=== PATIENT | female | born 1985 | race Caucasian/White ===

== ENCOUNTER 2017-01-01 19:09 | Inpatient (IN) | payer BC ==
[2017-01-01] MEDS ORDERED: CARBOPROST TROMETHAMINE 250 MCG/ML 1 ML AMP IM PRN (19:26)
[2017-01-01] MEDS ORDERED: METHYLERGONOVINE 0.2 MG/ML 1 ML AMP IM PRN (19:26)
[2017-01-01] MEDS ORDERED: OXYTOCIN 10 UNIT/ML 1 ML VIAL IM PRN (19:26)
[2017-01-01] MEDS ORDERED: TERBUTALINE 1 MG/ML VIAL SQ PRN (19:26)
[2017-01-01] MEDS ORDERED: LIDOCAINE 1% (PF) 10 MG/ML (30 ML SDV) SQ PRN (19:26)
--- NOTE | 2017-01-01 20:01 | P.HPOB ---
History of Present Illness H&P Date: 01/01/17 Chief Complaint: Hypertension. This patient is a pleasant 31-year-old 2 para 1 female estimated date of confinement 01/23/2017 estimated gestational age 36-6/7 weeks gestation who is admitted from home with complaints of elevated blood pressure. Patient's history is such that with her last she developed hypertension and preeclampsia that required delivery at 37 weeks. Patient most recently is had some blood pressures become elevated however today she was at home and had a blood pressure 150s over 90s. Patient was instructed to come to labor and delivery for evaluation. is complicated by known thrombocytopenia otherwise. Most recent platelets were 120. Patient's blood pressure now on labor and delivery is 151/98 and 155/95. Review of Systems Constitutional: Denies chills, Denies fever Cardiovascular: Denies chest pain, Denies shortness of breath Respiratory: Denies cough Gastrointestinal: Reports heartburn Genitourinary: Reports Menstruation: Reports amenorrhea Integumentary: Denies pruritus, Denies rash Neurological: Denies numbness, Denies weakness Psychiatric: Denies anxiety, Denies depression Endocrine: Denies fatigue, Denies weight change Past Medical History Past Medical History: Thyroid Disorder History of Any Multi-Drug Resistant Organisms: None Reported Past Surgical History: No Surgical Hx Reported Past Anesthesia/Blood Transfusion Reactions: No Reported Reaction Past Psychological History: No Psychological Hx Reported Smoking Status: Never smoker Past Drug Use History: None Reported Medications and Allergies Home Medications Medication Instructions Recorded Confirmed Type Aspirin 81 mg PO DAILY 12/25/16 12/25/16 History Levothyroxine Sodium [Synthroid] 100 mcg PO 12/25/16 History Pnv #78/Iron Asp Gly/FA#1/Dha 12/25/16 History [Prenate Dha Softgel] Allergies Allergy/AdvReac Type Severity Reaction Status Date / Time Penicillins Allergy Rash/Hives Verified 12/25/16 17:23 Sulfa (Sulfonamide Allergy Rash/Hives Verified 12/25/16 17:23 Antibiotics) Exam - OBG Physical Exam Abdomen: bowel sounds normal, no diffuse tenderness, no bruit present, no guarding noted, no hepatomegaly, no splenomegaly, no mass Vulva: both: normal Vagina: normal moisture, no discharge Cervix: Cervix is 2-3 cm dilated 50% effaced. Cervix: no lesion, no discharge Uterus: enlarged Results blood work shows she is A negative, rubella immune, RPR nonreactive, hepatitis B is negative, Glucola was abnormal with a normal three-hour gtt., ultrasounds have been normal. Group B strep was negative however was positive with her first . Assessment and Plan (1) Gestational hypertension affecting second Narrative/Plan: This is a pleasant 31-year-old 2 para 1 female 36-6/7 weeks gestation with gestational hypertension. Plan at this time is to check preeclampsia blood work. Due to the patient's elevated blood pressures current guidelines recommend delivery patient understands. Plan will be to proceed with induction tomorrow morning unless evidence of preeclampsia at this time or worsening hypertension. Due to patient's history of positive strep previous antibiotic prophylaxis. Patient does have known thrombocytopenia caused by the but not related to preeclampsia. Status: Acute (2) Third trimester Status: Acute (3) Thrombocytopenia Status: Acute (4) Rh negative status during Status: Acute (5) Group B streptococcal carriage complicating Status: Acute
[2017-01-01 20:13] LABS: ALT 31 U/L (9-52); AST 18 U/L (14-36); Blood Urea Nitrogen 9 mg/dL (7-17); LDH 413 U/L (313-618); Non-African American GFR(MDRD) >60 (>60 ml/min/1.73 sqM); Uric Acid 3.7 mg/dL (3.7-7.4)
[2017-01-01 20:26] LABS: Glucose,Urine (UA) Negative (Negative); Ketones,Urine Negative (Negative); Protein,Urine Trace (Negative)
[2017-01-01 20:28] LABS: Basophils % (A) 0 %; CH 31.6; CHCM 34.6; Eosinophils # (A) 0.2 k/uL (0-0.7); Eosinophils % (A) 2 %; HCT 37.6 % (34.0-46.0); HDW 2.59; HGB 12.7 gm/dL (11.4-16.0); Luc % (Auto) 1; Lymphocytes # (A) 1.1 k/uL (1.0-4.8); Lymphocytes % (A) 13 %; MCH 30.9 pg (25.0-35.0); MCHC 33.7 g/dL (31.0-37.0); MCV 91.7 fL (80.0-100.0); Mean Platelet Volume 8.7; Monocytes # (A) 0.3 k/uL (0-1.0); Monocytes % (A) 3 %; Neutrophils % (A) 81 %; RDW 12.8 % (11.5-15.5); WBC 8.7 k/uL (3.8-10.6); WBC (Perox) 9.07
[2017-01-01 20:34] LABS: INR 0.9 (<1.1); Partial Thromboplastin Time 22.3 sec (22.0-30.0); Prothrombin Time 9.6 sec (9.0-12.0)
[2017-01-01 20:37] VITALS: BMI 39.1
--- NOTE | 2017-01-02 06:00 | P.PN ---
Progress Note - Text Ariella is 37 weeks gestation today. Serial blood pressures greater than 4 hours apart shows blood pressures this remained in the 150s over 90s, currently she is 130s over 80s. Based on current a ACOG criteria plan today is to proceed with induction of labor and delivery.
[2017-01-02] MEDS ORDERED: OXYTOCIN 30 UNITS/500 ML NS 30 UNIT in SALINE 1 500ML.BAG IV SCH ×2 (06:40→15:20)
[2017-01-02] MEDS ORDERED: LACTATED RINGERS 1,000 ML IV SCH (06:40)
[2017-01-02] MEDS: LACTATED RINGERS 1,000 ML IV SCH ×3 (06:43→10:41)
[2017-01-02] MEDS: CLINDAMYCIN 900 MG in DEXTROSE 5% IN WATER 50 ML IVPB SCH ×4 (07:14→15:20)
[2017-01-02] MEDS ORDERED: BUTORPHANOL 1 MG/ML 1 ML VIAL IV PRN (10:03)
[2017-01-02] MEDS ORDERED: BUPIVACAINE (PF) 0.25% 30 ML VIAL ONE (10:55)
[2017-01-02] MEDS ORDERED: fentaNYL (PF) 50 MCG/ML 5 ML AMP ONE (10:55)
[2017-01-02] MEDS ORDERED: SODIUM CHLORIDE 0.9% 100 ML BAG ONE (10:55)
[2017-01-02] MEDS ORDERED: LANOLIN CREAM 5 GM TUBE TOPICAL PRN (15:20)
[2017-01-02] MEDS ORDERED: Acetaminophen-Codeine 300-30mg TAB PO PRN ×2 (15:20)
[2017-01-02] MEDS ORDERED: HYDROCORTISONE 2.5% RECTAL CREAM 30 GM TUBE RECTAL PRN (15:20)
[2017-01-02] MEDS ORDERED: WITCH HAZEL 1 EACH MED..PAD TOPICAL PRN (15:20)
[2017-01-02] MEDS ORDERED: BENZOCAINE/MENTHOL SPRAY 1 GM/SPRAY AEROSOL TOPICAL PRN (15:20)
[2017-01-02] MEDS ORDERED: SIMETHICONE 80 MG CHEWABLE PO PRN (15:20)
[2017-01-02] MEDS ORDERED: diphenhydrAMINE 50 MG/ML 1 ML VIAL IVP PRN (15:20)
[2017-01-02] MEDS ORDERED: BISACODYL 10 MG SUPP RECTAL PRN (15:20)
[2017-01-02] MEDS ORDERED: diphenhydrAMINE 25 MG CAP PO PRN (15:20)
[2017-01-02] MEDS ORDERED: ACETAMINOPHEN TAB 325 MG TAB PO PRN (15:20)
[2017-01-02] MEDS ORDERED: ZOLPIDEM 5 MG TAB PO PRN (15:20)
[2017-01-02] MEDS: IBUPROFEN 600 MG TAB PO PRN ×2 (15:56→22:18)
--- NOTE | 2017-01-02 18:19 | P.PROBDLV ---
Vaginal Delivery Note - . Vaginal Delivery Note: Normal vaginal delivery viable male infant Apgars 7 and 7 at 1511 hrs. Please see dictated H&P for intimate details of this patient's admission. Brief summary is a pleasant 31-year-old 2 para 1 female 37-0/7 weeks gestation who presented with complaints of elevated blood pressures. Patient's noted to have significant blood pressure elevations without evidence of preeclampsia otherwise. Patient's blood pressures however warranted delivery. Patient is 2-3 cm dilated this morning an artificial rupture membranes for clear fluid. Labor is induced with Pitocin. Patient's labor does progress and she gets an epidural for pain control. Patient progresses quickly gets to complete. She pushes for approximately 40 minutes. Patient pushes the head to the perineum. Posterior perineum was a trial 1% lidocaine and a midline episiotomy is made. We then have controlled delivery of the infant's head over the perineum. Mouth and nares are bulb suctioned. There is no evidence of a nuchal cord. We then have deliver the anterior and posterior shoulder with gentle downward traction. The rest this infant's body. This is a vigorous viable male Apgars are 7 and 7.After delivery of the infant the umbilical cord is doubly clamped and cut it appears to be trivascular. The infant is then taken to the warmer with the nurses in attendance. Placenta is then spontaneously delivered intact. Estimated blood loss is 150 mL. Inspection of the perineum shows a second-degree laceration is repaired with 3- 0 Vicryl usual fashion. Good reapproximation is noted counts are correct 3. There are no complications. Infant is taken to the special care nursery for evaluation and mother stable and birthing suite.
[2017-01-02] MEDS: SENNOSIDES-DOCUSATE SODIUM 1 EACH TAB PO SCH (19:36)
--- NOTE | 2017-01-03 05:57 | P.PNOBGVD ---
Subjective - Subjective Patient reports: Reports appetite normal, Reports voiding normally, Reports pain well controlled, Reports ambulating normally : doing well Objective - Latest Vital Signs Latest vital signs: Vital Signs Temp Pulse Resp BP 01/03/17 00:00 97.1 F L 79 16 109/68 01/02/17 19:42 97.3 F L 88 18 125/69 01/02/17 17:30 96.9 F L 91 16 145/77 01/02/17 17:00 97.6 F 82 16 138/64 01/02/17 16:30 97.9 F 86 16 131/66 01/02/17 16:15 88 136/69 01/02/17 16:00 93 18 126/62 01/02/17 15:45 97.9 F 102 H 16 119/64 01/02/17 15:30 98.0 F 97 16 126/68 Intake and Output 01/02/17 01/02/17 01/03/17 14:59 22:59 06:59 Intake Total 9.317 Output Total 150 Balance -140.683 Intake: Intake, IV Titration 9.317 Amount Oxytocin 30 Units/500 ml 9.317 Ns 30 unit In Saline 1 500ml.bag @ 1 MILLIUNIT/ MIN 1 mls/hr IV .Q24H AVIVA Rx#:[id number] Output: Estimated Blood Loss 150 Other: # Voids 1 2 Assessment and Plan (1) Gestational hypertension affecting second Narrative/Plan: day #1. Patient is resting without new complaints. Vital signs are stable. Her blood pressures are much improved since delivery. Uterus is firm nontender she's having normal lochia. My impression is a normal course. Plan is to continue routine care and discharge home tomorrow. Dr. Doe we'll see this patient tomorrow. Current Visit: Yes Status: Acute Code(s): O13.9 - GESTATIONAL HTN W/O SIGNIFICANT PROTEINURIA, UNSP TRIMESTER; O09.40 - SUPERVISION OF W GRAND MULTIPARITY, UNSP TRIMESTER SNOMED Code(s): 48708142 (2) Third trimester Current Visit: Yes Status: Acute Code(s): Z33.1 - STATE, INCIDENTAL SNOMED Code(s): 07735478 (3) Thrombocytopenia Current Visit: Yes Status: Acute Code(s): D69.6 - THROMBOCYTOPENIA, UNSPECIFIED SNOMED Code(s): 650468830 (4) Rh negative status during Current Visit: Yes Status: Acute Code(s): O09.899 - SUPERVISION OF OTHER HIGH RISK PREGNANCIES, UNSP TRIMESTER SNOMED Code(s): 100372818 (5) Group B streptococcal carriage complicating Current Visit: Yes Status: Acute Code(s): O99.820 - STREPTOCOCCUS B CARRIER STATE COMPLICATING SNOMED Code(s): 652726322696738
[2017-01-03] MEDS: IBUPROFEN 600 MG TAB PO PRN ×3 (06:14→21:41)
[2017-01-03] MEDS: SENNOSIDES-DOCUSATE SODIUM 1 EACH TAB PO SCH ×2 (08:32→21:41)
[2017-01-04] MEDS: IBUPROFEN 600 MG TAB PO PRN (09:26)
[2017-01-04] MEDS: SENNOSIDES-DOCUSATE SODIUM 1 EACH TAB PO SCH (09:26)
[2017-01-04 09:36] VITALS: RESP 16
--- NOTE | 2017-01-04 11:12 | P.DS ---
Providers Date of admission: 01/01/17 19:22 Expected date of discharge: 01/04/17 Attending physician: Rupesh Nieto Primary care physician: Stated None - Discharge Diagnosis(es) (1) Normal vaginal delivery Current Visit: Yes Status: Acute Hospital Course: Patient presented for induction of labor due to elevated blood pressures. She underwent a normal vaginal delivery and had an uncomplicated post course. She will be discharged home PPD #2 in stable condition to follow up with Dr Nieto in 6 weeks. Plan - Discharge Summary New Discharge Prescriptions: Acetaminophen-Codeine 300-30mg [Tylenol w/codeine #3] 1 - 2 each PO Q4HR PRN # 30 tab PRN Reason: Mild Pain exceeding Tylenol Ibuprofen [Motrin] 600 mg PO Q6HR PRN #40 tab PRN Reason: Mild Pain Or Fever >= 100.5 Discharge Medication List Aspirin 81 mg PO DAILY 12/25/16 [History] Levothyroxine Sodium [Synthroid] 100 mcg PO DAILY 12/25/16 [History] Pnv #78/Iron Asp Gly/FA#1/Dha [Prenate Dha Softgel] 1 tab PO DAILY 12/25/16 [ History] Acetaminophen-Codeine 300-30mg [Tylenol w/codeine #3] 1 - 2 each PO Q4HR PRN # 30 tab 01/02/17 [Rx] Ibuprofen [Motrin] 600 mg PO Q6HR PRN #40 tab 01/02/17 [Rx] Follow up Appointment(s)/Referral(s): Rupesh Nieto MD [STAFF PHYSICIAN] - 02/18/17 8:45 am Patient Instructions/Handouts: Vaginal Delivery (DC) Activity/Diet/Wound Care/Special Instructions: No intercourse or anything per vagina for 6 weeks. Please call if any fever, chills, excessive vaginal bleeding, and/or abdominal pain. Discharge Disposition: HOME SELF-CARE
[2017-01-04 16:25] VITALS: BP 139/75; PULSE 77; TEMP 98.2
== END 2017-01-04 16:26 | disposition home or self-care (01) | DRG 775 ==
LOC: FBPOP 19:09 → 4FBP 19:22
PROVIDERS: ADMIT Obstetrics & Gynecology; ATTEND Obstetrics & Gynecology
PROC: 3E0R3CZ (ICD-10-PCS; principal; 2017-01-01)
PROC: 0W8NXZZ Division of Female Perineum, External Approach (ICD-10-PCS; principal; 2017-01-01)
PROC: 00HU33Z Insertion of Infusion Device into Spinal Canal, Percutaneous Approach (ICD-10-PCS; principal; 2017-01-01)
PROC: 10E0XZZ Delivery of Products of Conception, External Approach (ICD-10-PCS; principal; 2017-01-01)
DX: O13.4 Gestational [pregnancy-induced] hypertension without significant proteinuria, complicating childbirth (principal); O99.12 Other diseases of the blood and blood-forming organs and certain disorders involving the immune mechanism complicating childbirth; O36.0130 Maternal care for anti-D [Rh] antibodies, third trimester, not applicable or unspecified; O99.284 Endocrine, nutritional and metabolic diseases complicating childbirth; E07.9 Disorder of thyroid, unspecified; O99.824 Streptococcus B carrier state complicating childbirth; Z37.0 Single live birth; Z3A.36 36 weeks gestation of pregnancy; Z88.0 Allergy status to penicillin; Z88.2 Allergy status to sulfonamides
CPT/HCPCS: 81003; 82565; 83615; 84450; 84460; 84520; 84550; 85025; 85384; 85610; 85730; 88307

== ENCOUNTER → 2018-01-14 | Outpatient (CLI) | payer OTHER ==
[2018-01-14 13:14] LABS: Basophils % (A) 1 %; Eosinophils # (A) 0.2 k/uL (0-0.7); Eosinophils % (A) 4 %; HCT 41.5 % (34.0-46.0); HGB 13.6 gm/dL (11.4-16.0); Lymphocytes # (A) 1.3 k/uL (1.0-4.8); Lymphocytes % (A) 22 %; MCH 30.3 pg (25.0-35.0); MCHC 32.9 g/dL (31.0-37.0); Mean Platelet Volume 7.1; Monocytes # (A) 0.2 k/uL (0-1.0); Monocytes % (A) 3 %; Neutrophils # (A) 4.2 k/uL (1.3-7.7); Neutrophils % (A) 70 %; Platelet Count 169 k/uL (150-450); RDW 12.4 % (11.5-15.5)
[2018-01-14 13:35] LABS: ALT 20 U/L (9-52); AST 15 U/L (14-36); Alkaline Phosphatase 50 U/L (38-126); Anion Gap 9 mmol/L; Blood Urea Nitrogen 10 mg/dL (7-17); Calcium 9.2 mg/dL (8.4-10.2); Carbon Dioxide 24 mmol/L (22-30); Chloride 106 mmol/L (98-107); Cholesterol 143 mg/dL (<200); Glucose 86 mg/dL (74-99); HDL Cholesterol 65 mg/dL (40-60); LDL Cholesterol,Calculated 67 mg/dL (0-99); Potassium 4.1 mmol/L (3.5-5.1); Sodium 139 mmol/L (137-145); Total Bilirubin 0.5 mg/dL (0.2-1.3); Total Protein 6.6 g/dL (6.3-8.2); Triglycerides 55 mg/dL (<150); Uric Acid 2.8 mg/dL (3.7-7.4)
[2018-01-14 13:51] LABS: T4, Free (Free Thyroxine) 1.09 ng/dL (0.78-2.19)
[2018-01-14 20:35] LABS: HIV AB P24 Non-Reactive (Non-Reactive); HIV P24 AG Non-Reactive (Non-Reactive)
[2018-01-14 23:11] LABS: Hemoglobin A1C 4.9 % (4.0-6.0)
[2018-01-15 05:47] LABS: Toxoplasma Antibody (IgG) <3.0 IU/mL (<7.2); Toxoplasma Antibody (IgM) <3.0 AU/mL (<8.0)
== END | disposition home or self-care (01) ==
LOC: LABWHC1 12:39
PROVIDERS: ATTEND Family Medicine
DX: O26.811 Pregnancy related exhaustion and fatigue, first trimester (principal); O99.281 Endocrine, nutritional and metabolic diseases complicating pregnancy, first trimester; E03.9 Hypothyroidism, unspecified; Z3A.00 Weeks of gestation of pregnancy not specified
CPT/HCPCS: 36415; 80053; 80061; 83036; 84439; 84443; 84550; 85025; 86592; 86762; 86777; 86778; 86850; 86900; 86901; 87340; 87390

== ENCOUNTER 2018-08-05 05:45 | Inpatient (IN) | payer OTHER ==
[2018-08-05] MEDS ORDERED: CARBOPROST TROMETHAMINE 250 MCG/ML 1 ML AMP IM PRN (06:00)
[2018-08-05] MEDS ORDERED: METHYLERGONOVINE 0.2 MG/ML 1 ML AMP IM PRN (06:00)
[2018-08-05] MEDS ORDERED: OXYTOCIN 20 UNITS/1000 ML NS 1,000 ML IV SCH ×2 (06:00→10:56)
[2018-08-05] MEDS ORDERED: CLINDAMYCIN 900 MG in DEXTROSE 5% IN WATER 50 ML IVPB SCH ×2 (06:00)
[2018-08-05] MEDS ORDERED: OXYTOCIN 10 UNIT/ML 1 ML VIAL IM PRN (06:00)
[2018-08-05] MEDS ORDERED: TERBUTALINE 1 MG/ML VIAL SQ PRN (06:00)
[2018-08-05] MEDS ORDERED: LIDOCAINE 1% (PF) 10 MG/ML (30 ML SDV) SQ PRN (06:00)
[2018-08-05] MEDS: LACTATED RINGERS 1,000 ML IV SCH ×2 (06:25→07:49)
[2018-08-05 06:29] LABS: Basophils % (A) 0 %; Eosinophils # (A) 0.2 k/uL (0-0.7); Eosinophils % (A) 2 %; HCT 41.6 % (34.0-46.0); HGB 13.7 gm/dL (11.4-16.0); Lymphocytes # (A) 1.6 k/uL (1.0-4.8); Lymphocytes % (A) 19 %; MCH 30.9 pg (25.0-35.0); MCV 93.6 fL (80.0-100.0); Mean Platelet Volume 8.8; Monocytes # (A) 0.4 k/uL (0-1.0); Monocytes % (A) 5 %; Neutrophils # (A) 6.4 k/uL (1.3-7.7); Neutrophils % (A) 73 %; Platelet Count 113 k/uL (150-450); RBC 4.44 m/uL (3.80-5.40); RDW 13.6 % (11.5-15.5); WBC 8.8 k/uL (3.8-10.6)
--- NOTE | 2018-08-05 06:31 | P.HPOB ---
History of Present Illness H&P Date: 08/05/18 Chief Complaint: Elective induction for gestational diabetes This patient is a pleasant 32-year-old 3 para 2 female estimated date of confinement 08/12/2018 estimated gestational age 39 weeks who presents to labor and delivery for induction of labor secondary to gestational diabetes and history of preeclampsia. Patient's history is such that she had hypertension with both of her previous pregnancies that required delivery at 37 weeks. His patient was placed on baby aspirin at approximately 12 weeks and then discontinued at 36 weeks. Patient's been watched closely is having no significant blood pressure problems. She was diagnosed with diet-controlled diabetes seen the unit leader with excellent control. Nonstress testing has been normal as well. Patient now has a favorable cervix and we've recommended to proceed with delivery at this time. Review of Systems Gastrointestinal: Reports heartburn Genitourinary: Reports Menstruation: Reports amenorrhea Past Medical History Past Medical History: Thyroid Disorder Additional Past Medical History / Comment(s): Hypothyroidism. Patient's had 2 previous vaginal deliveries the first had a positive strep. History of mild thrombocytopenia with . History of Any Multi-Drug Resistant Organisms: None Reported Past Surgical History: No Surgical Hx Reported Past Anesthesia/Blood Transfusion Reactions: No Reported Reaction Past Psychological History: No Psychological Hx Reported Smoking Status: Never smoker Past Alcohol Use History: None Reported Past Drug Use History: None Reported - Past Family History Father Family Medical History: Diabetes Mellitus Medications and Allergies Home Medications Medication Instructions Recorded Confirmed Type Levothyroxine Sodium [Synthroid] 100 mcg PO DAILY 12/25/16 08/05/18 History 78/Iron/Folate 1/Dha 1 tab PO DAILY 12/25/16 08/05/18 History [Prenate Dha Softgel] Allergies Allergy/AdvReac Type Severity Reaction Status Date / Time Penicillins Allergy Rash/Hives Verified 08/05/18 05:59 Sulfa (Sulfonamide Allergy Rash/Hives Verified 08/05/18 05:59 Antibiotics) Exam Intake and Output 08/04/18 08/04/18 08/05/18 14:59 22:59 06:59 Other: Weight 95.254 kg - OBG Physical Exam Abdomen: bowel sounds normal, no diffuse tenderness, no bruit present, no guarding noted, no hepatomegaly, no splenomegaly, no mass Vulva: both: normal Vagina: normal moisture, no discharge Cervix: no lesion (Cervix is 4-5 cm 70% effaced.), no discharge Uterus: enlarged (Fundal height is 40 cm) Results blood work shows she is A- (patient did not receive RhoGAM because her is Rh- as well), rubella immune, RPR is nonreactive, HIV is nonreactive , hepatitis B is negative, Glucola was abnormal and she had 1 abnormal 3 hour GTT value. Ultrasounds have been normal and nonstress testing has been normal. Assessment and Plan Assessment: This is a pleasant 32-year-old 3 para 2 female 39 weeks gestation admitted to labor and delivery for induction of labor secondary to gestational diabetes and history of preeclampsia. Patient's had excellent diabetes control is no evidence of hypertension at this time. Plan is induction of labor and anticipate vaginal delivery. (1) Third trimester Current Visit: No Status: Acute Code(s): Z33.1 - STATE, INCIDENTAL SNOMED Code(s): 47719320 (2) Gestational diabetes mellitus (GDM) affecting Current Visit: Yes Status: Acute Code(s): O24.419 - GESTATIONAL DIABETES MELLITUS IN , UNSP CONTROL SNOMED Code(s): 07229450473725
[2018-08-05 06:51] VITALS: BMI 37.2
[2018-08-05 07:15] LABS: Glucose,Whole Blood 84 mg/dL (75-99)
[2018-08-05] MEDS ORDERED: ROPIVACAINE 100 MG, fentaNYL (PF) 200 MCG in SODIUM CHLORIDE 0.9% 76 ML EPIDURAL ONE (10:02)
[2018-08-05] MEDS ORDERED: HYDROCORTISONE 2.5% RECTAL CREAM 30 GM TUBE RECTAL PRN (10:56)
[2018-08-05] MEDS ORDERED: diphenhydrAMINE 50 MG/ML 1 ML VIAL IVP PRN (10:56)
[2018-08-05] MEDS ORDERED: ZOLPIDEM 5 MG TAB PO PRN (10:56)
[2018-08-05] MEDS ORDERED: BISACODYL 10 MG SUPP RECTAL PRN (10:56)
[2018-08-05] MEDS ORDERED: LANOLIN CREAM 5 GM TUBE TOPICAL PRN (10:56)
[2018-08-05] MEDS ORDERED: SIMETHICONE 80 MG CHEWABLE PO PRN (10:56)
[2018-08-05] MEDS ORDERED: diphenhydrAMINE 25 MG CAP PO PRN (10:56)
[2018-08-05] MEDS ORDERED: WITCH HAZEL 1 EACH MED..PAD TOPICAL PRN (10:56)
[2018-08-05] MEDS ORDERED: ACETAMINOPHEN TAB 325 MG TAB PO PRN (10:56)
[2018-08-05] MEDS ORDERED: BENZOCAINE/MENTHOL SPRAY 1 GM/SPRAY AEROSOL TOPICAL PRN (10:56)
[2018-08-05] MEDS: SENNOSIDES-DOCUSATE SODIUM 1 EACH TAB PO SCH ×2 (11:17→20:12)
--- NOTE | 2018-08-05 12:56 | P.PROBDLV ---
Vaginal Delivery Note - . Vaginal Delivery Note: Normal vaginal delivery viable male infant Apgars 9 and 9 delivery time is 1039 hrs. Please see dictated H&P for intimate details of this patient's admission. Brief summary this is a pleasant 32-year-old 3 para 2 female 39 weeks gestation admitted to labor and delivery for induction of labor. Patient is 4- 5 cm dilated on admission and has artificial rupture membranes for clear fluid labor is induced with Pitocin per protocol. Patient does get uncomfortable gets an epidural placed with good relief. Patient's labor thereafter progresses quickly she gets to complete. She pushes approximately for 5 minutes and pushes the head to the perineum. Posterior perineum was supported and we have controlled delivery of 's head over the intact perineum. Mouth and nares are bulb suctioned. There is no evidence of a nuchal cord. With gentle downward traction we have delivery the anterior and posterior shoulder and rest this 's body. This is a vigorous viable male Apgars 9 and 9 delivery time is 1039 hrs. After delivery of the the infant is late on the mother's abdomen. After the cord is done pulsating it is doubly clamped and transected. Cord blood is obtained for Rh status. Placenta is then spontaneously delivered intact. Estimated blood loss is about 100 mL. There is a left superficial perineal laceration does not require repair. All counts are correct 2. There are no complications. and mother stable delivery room.
[2018-08-05] MEDS: IBUPROFEN 600 MG TAB PO PRN ×2 (13:42→20:12)
[2018-08-06] MEDS: IBUPROFEN 600 MG TAB PO PRN ×3 (01:49→14:11)
[2018-08-06 05:12] VITALS: RESP 18
--- NOTE | 2018-08-06 05:51 | P.PNOBGVD ---
Subjective - Subjective Patient reports: Reports appetite normal, Reports voiding normally, Reports pain well controlled, Reports ambulating normally [place]: doing well Objective - Latest Vital Signs Latest vital signs: Vital Signs Temp Pulse Resp BP Pulse Ox 08/06/18 04:00 98.1 F 70 18 128/72 100 08/06/18 00:00 98.0 F 73 15 125/70 08/05/18 20:00 98 F 75 15 08/05/18 15:33 98.3 F 72 18 120/75 08/05/18 13:00 97.6 F 64 18 128/65 08/05/18 12:30 97.3 F L 69 18 127/71 08/05/18 12:26 97.3 F L 69 18 127/71 08/05/18 12:00 97.7 F 76 18 119/63 08/05/18 11:45 67 124/71 08/05/18 11:30 97.3 F L 71 18 118/67 08/05/18 11:15 81 18 122/59 08/05/18 11:00 98.5 F 90 18 127/68 08/05/18 06:42 97.0 F L 96 16 135/85 Intake and Output 08/05/18 08/05/18 08/06/18 14:59 22:59 06:59 Intake Total 14.4 Balance 14.4 Intake: Intake, IV Titration 14.4 Amount Oxytocin 20 Units/1000 ml 14.4 Ns 1,000 ml @ 1 MILLIUNIT/MIN 3 mls/hr IV .Q24H [facility] Rx#:[id number] Other: # Voids 1 1 2 - Exam Lungs: bilateral: normal Chest: Normal S1, Normal S2 Extremities: Present: normal Abdomen: Present: normal appearance, soft Uterus: Present: normal, firm - Labs Labs: Abnormal Lab Results - Last 24 Hours (Table) 08/05/18 Range/Units 06:10 Plt Count 113 L (150-450) k/uL Assessment and Plan Assessment: Post day #1. Patient is resting without complaints and wishes to go home. Vital signs are stable and she is afebrile. Uterus is firm nontender she 's having normal lochia. My impression this is a normal course. Plan is to check a CBC today, continue routine care, and discharge home later today. (1) Third trimester Current Visit: No Status: Acute Code(s): Z33.1 - STATE, INCIDENTAL SNOMED Code(s): 58196498 (2) Gestational diabetes mellitus (GDM) affecting Current Visit: Yes Status: Acute Code(s): O24.419 - GESTATIONAL DIABETES MELLITUS IN , UNSP CONTROL SNOMED Code(s): 15419037719361
--- NOTE | 2018-08-06 05:56 | P.DS ---
Providers Date of admission: 08/05/18 05:45 Expected date of discharge: 08/06/18 Attending physician: Rupesh Nieto Primary care physician: Stated None - Discharge Diagnosis(es) (1) Third trimester Current Visit: No Status: Acute (2) Gestational diabetes mellitus (GDM) affecting Current Visit: Yes Status: Acute Hospital Course: Please see dictated H&P for intimate details of this patient's admission. Brief summary this is a pleasant 32-year-old 3 para 2 female 39 weeks gestation admitted to labor and delivery for induction of labor secondary to gestational diabetes and history of gestational hypertension. Patient is admitted has uncomplicated induction of labor quickly goes on have a vaginal delivery viable male . Please see dictated delivery note. day 1 patient's felt be stable for discharge home follow up with me in 6 weeks. Procedures: Induction of labor and normal vaginal delivery. Patient Condition at Discharge: Good Plan - Discharge Summary New Discharge Prescriptions: New Ibuprofen [Motrin] 600 mg PO Q6HR PRN #40 tab PRN Reason: Mild Pain Or Fever >= 100.5 No Action 78/Iron/Folate 1/Dha [Prenate Dha Softgel] 1 tab PO DAILY Levothyroxine Sodium [Synthroid] 100 mcg PO DAILY Discharge Medication List Levothyroxine Sodium [Synthroid] 100 mcg PO DAILY 12/25/16 [History] 78/Iron/Folate 1/Dha [Prenate Dha Softgel] 1 tab PO DAILY 12/25/16 [ History] Ibuprofen [Motrin] 600 mg PO Q6HR PRN #40 tab 08/06/18 [Rx] Follow up Appointment(s)/Referral(s): Rupesh Nieto MD [STAFF PHYSICIAN] - 09/16/18 9:30 am Patient Instructions/Handouts: Vaginal Delivery (DC) Activity/Diet/Wound Care/Special Instructions: No intercourse or anything per vagina for 6 weeks. Please call if any fever, chills, excessive vaginal bleeding, and/or abdominal pain. Discharge Disposition: HOME SELF-CARE
[2018-08-06 07:59] VITALS: BP 124/72; PULSE 63; TEMP 97.6
[2018-08-06] MEDS: SENNOSIDES-DOCUSATE SODIUM 1 EACH TAB PO SCH (08:09)
[2018-08-06 09:00] LABS: Basophils % (A) 0 %; Eosinophils # (A) 0.2 k/uL (0-0.7); Eosinophils % (A) 2 %; HCT 39.7 % (34.0-46.0); Lymphocytes # (A) 1.5 k/uL (1.0-4.8); Lymphocytes % (A) 17 %; MCH 30.7 pg (25.0-35.0); MCHC 32.7 g/dL (31.0-37.0); MCV 93.6 fL (80.0-100.0); Mean Platelet Volume 8.1; Monocytes # (A) 0.3 k/uL (0-1.0); Monocytes % (A) 4 %; Neutrophils # (A) 6.6 k/uL (1.3-7.7); Neutrophils % (A) 75 %; Platelet Count 111 k/uL (150-450); RBC 4.24 m/uL (3.80-5.40); RDW 13.6 % (11.5-15.5); WBC 8.8 k/uL (3.8-10.6)
== END 2018-08-06 14:40 | disposition home or self-care (01) | DRG 775 ==
LOC: 4FBP 05:45
PROVIDERS: ADMIT Obstetrics & Gynecology; ATTEND Obstetrics & Gynecology
PROC: 10E0XZZ Delivery of Products of Conception, External Approach (ICD-10-PCS; principal; 2018-08-05)
PROC: 3E033VJ Introduction of Other Hormone into Peripheral Vein, Percutaneous Approach (ICD-10-PCS; 2018-08-05)
PROC: 10907ZC Drainage of Amniotic Fluid, Therapeutic from Products of Conception, Via Natural or Artificial Opening (ICD-10-PCS; 2018-08-05)
PROC: 00HU33Z Insertion of Infusion Device into Spinal Canal, Percutaneous Approach (ICD-10-PCS; 2018-08-05)
PROC: 3E0R3BZ Introduction of Anesthetic Agent into Spinal Canal, Percutaneous Approach (ICD-10-PCS; 2018-08-05)
DX: O24.420 Gestational diabetes mellitus in childbirth, diet controlled (principal); O99.284 Endocrine, nutritional and metabolic diseases complicating childbirth; E03.9 Hypothyroidism, unspecified; Z37.0 Single live birth; Z3A.39 39 weeks gestation of pregnancy; Z88.0 Allergy status to penicillin; Z88.2 Allergy status to sulfonamides; Z83.3 Family history of diabetes mellitus
CPT/HCPCS: 85025

== ENCOUNTER 2018-12-05 21:00 | Emergency (ER) | payer OTHER ==
[2018-12-05] MEDS ORDERED: SODIUM CHLORIDE 0.9% 1,000 ML IV STA (21:38)
[2018-12-05 22:06] LABS: Basophils % (A) 1 %; Eosinophils # (A) 0.3 k/uL (0-0.7); Eosinophils % (A) 5 %; HCT 42.9 % (34.0-46.0); HGB 14.7 gm/dL (11.4-16.0); Lymphocytes # (A) 1.6 k/uL (1.0-4.8); Lymphocytes % (A) 29 %; MCH 30.8 pg (25.0-35.0); MCHC 34.3 g/dL (31.0-37.0); MCV 89.7 fL (80.0-100.0); Mean Platelet Volume 7.3; Monocytes # (A) 0.3 k/uL (0-1.0); Monocytes % (A) 5 %; Neutrophils # (A) 3.2 k/uL (1.3-7.7); Neutrophils % (A) 60 %; Platelet Count 153 k/uL (150-450); RBC 4.78 m/uL (3.80-5.40); RDW 12.9 % (11.5-15.5); WBC 5.4 k/uL (3.8-10.6)
[2018-12-05 22:13] LABS: Appearance,Urine Clear (Clear); Bilirubin,Urine Negative (Negative); Blood,Urine Negative (Negative); Color,Urine Light Yellow; Glucose,Urine (UA) Negative (Negative); Ketones,Urine Negative (Negative); Leukocyte Esterase,Urine Negative (Negative); Nitrite,Urine Negative (Negative); Protein,Urine Negative (Negative); Specific Gravity,Urine 1.011 (1.001-1.035); Urobilinogen,Urine <2.0 mg/dL (<2.0)
[2018-12-05 22:16] LABS: ALT 40 U/L (9-52); AST 29 U/L (14-36); Albumin 4.1 g/dL (3.5-5.0); Alkaline Phosphatase 55 U/L (38-126); Amylase 72 U/L (30-110); Anion Gap 6 mmol/L; Blood Urea Nitrogen 10 mg/dL (7-17); Calcium 9.4 mg/dL (8.4-10.2); Carbon Dioxide 28 mmol/L (22-30); Chloride 106 mmol/L (98-107); Glucose 94 mg/dL (74-99); Lipase 189 U/L (23-300); Sodium 140 mmol/L (137-145); Total Bilirubin 0.7 mg/dL (0.2-1.3); Total Protein 6.8 g/dL (6.3-8.2)
[2018-12-05] MEDS ORDERED: ONDANSETRON 4 MG/2 ML VIAL IVP STA (22:31)
--- NOTE | 2018-12-05 22:48 | US ---
EXAMINATION TYPE: US abdomen limited DATE OF EXAM: 12/05/2018 COMPARISON: NONE CLINICAL HISTORY: Pain. Epigastric and RUQ pain today EXAM MEASUREMENTS: Liver Length: 15.1 cm Gallbladder Wall: 0.2 cm CBD: 0.4 cm Right Kidney: 10.0 x 5.9 x 4.6 cm Pancreas: Mid and Tail obscured by overlying bowel gas Liver: wnl Gallbladder: wnl Evidence for sonographic Benitez's sign: no CBD: wnl Right Kidney: wnl IMPRESSION: Negative right upper quadrant abdominal sonogram. No gallstones or dilated ducts.
[2018-12-05] MEDS ORDERED: FAMOTIDINE 20 MG/2 ML VIAL IV STA (23:00)
[2018-12-05 23:08] VITALS: BP 127/82; PULSE 73; RESP 18
--- NOTE | 2018-12-05 23:09 | ED ---
Abdominal Pain HPI - General Chief Complaint: Abdominal Pain Stated Complaint: Abd pain Time Seen by Provider: 12/05/18 21:27 Source: patient Mode of arrival: ambulatory Limitations: no limitations - History of Present Illness Initial Comments: 32-year-old female patient presents to the emergency department today for evaluation of midepigastric and right upper quadrant abdominal pain. Patient states that symptoms started after having what she believes to be gastroenteritis with vomiting and diarrhea in the middle of October. Patient states that she has continued to have nausea since incident. Patient states that she started to have some abdominal discomfort yesterday. Patient states that she woke up in the middle the night last night with intense pain to the midepigastric right upper quadrant region. Patient states the pain does radiate through to her back. States it feels like a band-like sensation surrounding her upper abdomen. She denies any vomiting with this. Denies any constipation or diarrhea. Denies any hematochezia, melena, or hematemesis. She denies any fevers or chills. He says she has tried taking Zantac and Tums without relief of symptoms. Patient is 4 months . She is currently breast-feeding. Patient denies any recent rash, shortness breath, chest pain, numbness, tingling, dizziness, weakness, hematuria, dysuria, urinary urgency, urinary frequency, headache, visual changes, or any other complaints. - Related Data Home Medications Medication Instructions Recorded Confirmed Levothyroxine Sodium [Synthroid] 100 mcg PO DAILY 12/25/16 08/05/18 78/Iron/Folate 1/Dha 1 tab PO DAILY 12/25/16 08/05/18 [Prenate Dha Softgel] Previous Rx's Medication Instructions Recorded Ibuprofen [Motrin] 600 mg PO Q6HR PRN #40 tab 08/06/18 Famotidine [Pepcid] 20 mg PO DAILY #30 tablet 12/05/18 Allergies Allergy/AdvReac Type Severity Reaction Status Date / Time Penicillins Allergy Rash/Hives Verified 12/05/18 21:20 Sulfa (Sulfonamide Allergy Rash/Hives Verified 12/05/18 21:20 Antibiotics) Review of Systems ROS Statement: Those systems with pertinent positive or pertinent negative responses have been documented in the HPI. ROS Other: All systems not noted in ROS Statement are negative. Past Medical History Past Medical History: Thyroid Disorder Additional Past Medical History / Comment(s): Hypothyroidism. Patient's had 3 previous vaginal deliveries the first had a positive strep. History of mild thrombocytopenia with . History of Any Multi-Drug Resistant Organisms: None Reported Past Surgical History: No Surgical Hx Reported Past Anesthesia/Blood Transfusion Reactions: No Reported Reaction Past Psychological History: No Psychological Hx Reported Smoking Status: Never smoker Past Alcohol Use History: None Reported Past Drug Use History: None Reported - Past Family History Father Family Medical History: Diabetes Mellitus General Exam Limitations: no limitations General appearance: alert, in no apparent distress, other (Physical well- developed, well-nourished adult female patient in no acute distress. Vital signs upon presentation are temperature 98.3F, pulse 81, respirations 17, blood pressure 140/89, pulse ox 100% on room air.) Eye exam: Present: normal appearance, PERRL, EOMI. Absent: scleral icterus, conjunctival injection, periorbital swelling ENT exam: Present: normal exam, normal oropharynx, mucous membranes moist Respiratory exam: Present: normal lung sounds bilaterally. Absent: respiratory distress, wheezes, rales, rhonchi, stridor Cardiovascular Exam: Present: regular rate, normal rhythm, normal heart sounds. Absent: systolic murmur, diastolic murmur, rubs, gallop, clicks GI/Abdominal exam: Present: soft, tenderness (Epigastric tenderness, negative Benitez sign), normal bowel sounds. Absent: distended, guarding, rebound, rigid Back exam: Present: normal inspection. Absent: CVA tenderness (R), CVA tenderness (L) Neurological exam: Present: alert, oriented X3, CN II-XII intact Psychiatric exam: Present: normal affect, normal mood Skin exam: Present: warm, dry, intact, normal color. Absent: rash Course Vital Signs 12/05/18 12/05/18 12/05/18 21:14 23:07 23:26 Temperature 98.3 F 98.2 F Pulse Rate 81 73 Respiratory 17 18 Rate Blood Pressure 140/89 127/82 O2 Sat by Pulse 100 98 Oximetry Medical Decision Making - Medical Decision Making 32-year-old female patient presented to the emergency department today for evaluation of midepigastric abdominal pain radiating through to her back. Physical examination did reveal some midepigastric tenderness. Negative Benitez sign. No CVA tenderness. Labs reviewed and were unremarkable. Urinalysis negative for any evidence of infection. She is not . Ultrasound of the right upper quadrant abdomen showed no acute abnormalities. Did discuss findings and results with the patient. We discussed possibility of gastritis versus peptic ulcer disease as a cause for her symptoms. To be discharged home with a prescription for Pepcid. She is instructed to follow-up with her primary care physician for possible referral to gastroenterology. Return parameters discussed in detail. She verbalizes understanding and agrees with this plan - Lab Data Result diagrams: 12/05/18 21:52 12/05/18 21:52 Lab Results 12/05/18 12/05/18 12/05/18 Range/Units 21:52 21:52 21:52 WBC 5.4 (3.8-10.6) k/uL RBC 4.78 (3.80-5.40) m/uL Hgb 14.7 (11.4-16.0) gm/dL Hct 42.9 (34.0-46.0) % MCV 89.7 (80.0-100.0) fL MCH 30.8 (25.0-35.0) pg MCHC 34.3 (31.0-37.0) g/dL RDW 12.9 (11.5-15.5) % Plt Count 153 (150-450) k/uL Neutrophils % 60 % Lymphocytes % 29 % Monocytes % 5 % Eosinophils % 5 % Basophils % 1 % Neutrophils # 3.2 (1.3-7.7) k/uL Lymphocytes # 1.6 (1.0-4.8) k/uL Monocytes # 0.3 (0-1.0) k/uL Eosinophils # 0.3 (0-0.7) k/uL Basophils # 0.0 (0-0.2) k/uL Sodium 140 (137-145) mmol/L Potassium 4.0 (3.5-5.1) mmol/L Chloride 106 (98-107) mmol/L Carbon Dioxide 28 (22-30) mmol/L Anion Gap 6 mmol/L BUN 10 (7-17) mg/dL Creatinine 0.73 (0.52-1.04) mg/dL Est GFR (CKD-EPI)AfAm >90 (>60 ml/min/1.73 sqM) Est GFR (CKD-EPI)NonAf >90 (>60 ml/min/1.73 sqM) Glucose 94 (74-99) mg/dL Calcium 9.4 (8.4-10.2) mg/dL Total Bilirubin 0.7 (0.2-1.3) mg/dL AST 29 (14-36) U/L ALT 40 (9-52) U/L Alkaline Phosphatase 55 (38-126) U/L Total Protein 6.8 (6.3-8.2) g/dL Albumin 4.1 (3.5-5.0) g/dL Amylase 72 (30-110) U/L Lipase 189 (23-300) U/L Urine Color Urine Appearance (Clear) Urine pH (5.0-8.0) Ur Specific [place] (1.001-1.035) Urine Protein (Negative) Urine Glucose (UA) (Negative) Urine Ketones (Negative) Urine Blood (Negative) Urine Nitrite (Negative) Urine Bilirubin (Negative) Urine Urobilinogen (<2.0) mg/dL Ur Leukocyte Esterase (Negative) Urine HCG, Qual Not Detected (Not Detectd) 12/05/18 Range/Units 21:52 WBC (3.8-10.6) k/uL RBC (3.80-5.40) m/uL Hgb (11.4-16.0) gm/dL Hct (34.0-46.0) % MCV (80.0-100.0) fL MCH (25.0-35.0) pg MCHC (31.0-37.0) g/dL RDW (11.5-15.5) % Plt Count (150-450) k/uL Neutrophils % % Lymphocytes % % Monocytes % % Eosinophils % % Basophils % % Neutrophils # (1.3-7.7) k/uL Lymphocytes # (1.0-4.8) k/uL Monocytes # (0-1.0) k/uL Eosinophils # (0-0.7) k/uL Basophils # (0-0.2) k/uL Sodium (137-145) mmol/L Potassium (3.5-5.1) mmol/L Chloride (98-107) mmol/L Carbon Dioxide (22-30) mmol/L Anion Gap mmol/L BUN (7-17) mg/dL Creatinine (0.52-1.04) mg/dL Est GFR (CKD-EPI)AfAm (>60 ml/min/1.73 sqM) Est GFR (CKD-EPI)NonAf (>60 ml/min/1.73 sqM) Glucose (74-99) mg/dL Calcium (8.4-10.2) mg/dL Total Bilirubin (0.2-1.3) mg/dL AST (14-36) U/L ALT (9-52) U/L Alkaline Phosphatase (38-126) U/L Total Protein (6.3-8.2) g/dL Albumin (3.5-5.0) g/dL Amylase (30-110) U/L Lipase (23-300) U/L Urine Color Light Yellow Urine Appearance Clear (Clear) Urine pH 6.0 (5.0-8.0) Ur Specific [place] 1.011 (1.001-1.035) Urine Protein Negative (Negative) Urine Glucose (UA) Negative (Negative) Urine Ketones Negative (Negative) Urine Blood Negative (Negative) Urine Nitrite Negative (Negative) Urine Bilirubin Negative (Negative) Urine Urobilinogen <2.0 (<2.0) mg/dL Ur Leukocyte Esterase Negative (Negative) Urine HCG, Qual (Not Detectd) - Radiology Data Radiology results: report reviewed Ultrasound of the right upper quadrant was obtained. Report was reviewed in its entirety. Impression by Dr. Arevalo shows negative right upper quadrant abdominal sonogram. No gallstones or dilated ducts. Disposition Clinical Impression: Abdominal pain Disposition: HOME SELF-CARE Condition: Good Instructions: Diet for Stomach Ulcers and Gastritis (ED), Abdominal Pain (ED) Additional Instructions: Take medication as directed. Follow up with primary care physician to discuss possible referral to gastroenterology. Return to the emergency department for any new, worsening, or concerning symptoms. Prescriptions: Famotidine [Pepcid] 20 mg PO DAILY #30 tablet Is patient prescribed a controlled substance at d/c from ED?: No Referrals: Luisito Franklin MD [Primary Care Provider] - 1-2 days Time of Disposition: 23:09
[2018-12-05 23:27] VITALS: TEMP 98.2
== END 2018-12-05 23:27 | disposition home or self-care (01) ==
LOC: EC 21:00
DX: R10.13 Epigastric pain (principal); R10.11 Right upper quadrant pain; R11.0 Nausea; Z32.02 Encounter for pregnancy test, result negative; E03.9 Hypothyroidism, unspecified; Z79.890 Hormone replacement therapy; Z88.0 Allergy status to penicillin; Z88.2 Allergy status to sulfonamides
CPT/HCPCS: 36415; 80053; 82150; 83690; 85025; 81003; 81025; 76705; 99284; 96374; 96375; 96361; J2405

== ENCOUNTER → 2018-12-07 | Outpatient (CLI) | payer OTHER ==
--- NOTE | 2018-12-07 13:57 | CT ---
EXAMINATION TYPE: CT abdomen wo con DATE OF EXAM: 12/07/2018 COMPARISON: Correlation ultrasound 12/05/2018 HISTORY: 33-year-old female Epigastric pain and nausea x1 week. TECHNIQUE: Contiguous axial scanning of the abdomen without IV contrast. Coronal and sagittal reconst ructions performed. CT DLP: 543 mGycm Automated exposure control for dose reduction was used. FINDINGS: Heart normal size without pericardial effusion. Lung bases clear without pleural effusion. Noncontrast appearance of the liver, gallbladder, adrenal glands, kidneys, spleen, and pancreas show no gross abnormality. Numerous scattered nonenlarged and borderline sized mesenteric lymph nodes measuring up to 5 mm. Portions of a normal-appearing appendix are visualized. Some prominent fluid within low hanging small bowel loops and additional liquid stool within the cecum. Otherwise, there is moderate stool through out the remainder of the colon. No pericolonic inflammatory change. No dilated small bowel, free fluid, or free air. The pelvis is not imaged. Bones: No osseous destructive process. IMPRESSION: 1. NUMEROUS SCATTERED NONENLARGED AND BORDERLINE SIZED MESENTERIC LYMPH NODES MEASURING UP TO 5 MM NO NSPECIFIC, LIKELY REACTIVE/POST INFLAMMATORY SUCH IN THE SETTING OF ENTERITIS OR MESENTERIC ADENIT IS. 2. PROMINENT FLUID-FILLED LOW-LYING SMALL BOWEL LOOPS AND ADDITIONAL LIQUID STOOL IN THE CECUM. THIS MAY REFLECT ENTERITIS WELL. 3. PELVIS NOT IMAGED.
== END | disposition home or self-care (01) ==
LOC: RADCTMAIN 12:53
PROVIDERS: ATTEND Physician Assistant
DX: R10.13 Epigastric pain (principal)
CPT/HCPCS: 74150

== ENCOUNTER → 2021-10-10 | Outpatient (CLI) | payer OTHER ==
[2021-10-10 10:58] LABS: Partial Thromboplastin Time 23.4 sec (22.0-30.0); Prothrombin Time 10.9 sec (9.0-12.0)
[2021-10-10 11:16] LABS: Appearance,Urine Clear (Clear); Bilirubin,Urine Negative (Negative); Blood,Urine Negative (Negative); Color,Urine Light Yellow; Glucose,Urine (UA) Negative (Negative); Ketones,Urine Negative (Negative); Leukocyte Esterase,Urine Negative (Negative); Nitrite,Urine Negative (Negative); PH, Urine 5.5 (5.0-8.0); Protein,Urine Negative (Negative); Specific Gravity,Urine 1.008 (1.001-1.035); Urobilinogen,Urine <2.0 mg/dL (<2.0)
[2021-10-10 18:10] LABS: ALT 11 U/L (8-44); AST 14 U/L (13-35); African American GFR (CKD) 93.2 (60.0-200.0); Albumin 4.9 g/dL (3.8-4.9); Albumin/Globulin Ratio 2.24 (1.60-3.17); Alkaline Phosphatase 47 U/L (41-126); BUN/Creat Ratio 14.18 Ratio (12.00-20.00); Calcium 9.2 mg/dL (8.7-10.3); Carbon Dioxide 21.6 mmol/L (21.6-31.8); Chloride 103 mmol/L (96-109); Chol/HDL Ratio 2.64 Ratio; Globulin 2.2 g/dL (1.6-3.3); Glucose 99 mg/dL (70-110); LDL Cholesterol,Calculated 103.4 mg/dL (0.0-131.0); Non-African American GFR(CKD) 80.4 (60.0-200.0); Potassium 3.9 mmol/L (3.5-5.5); Sodium 138 mmol/L (135-145); Total Protein 7.1 g/dL (6.2-8.2)
== END | disposition home or self-care (01) ==
LOC: LABWHC1 09:50
PROVIDERS: ATTEND Family Medicine
DX: Z00.00 Encounter for general adult medical examination without abnormal findings (principal); E03.9 Hypothyroidism, unspecified
CPT/HCPCS: 36415; 80053; 80061; 81003; 82306; 83036; 84439; 84443; 84481; 85610; 85730

== ENCOUNTER → 2021-10-10 | Outpatient (CLI) | payer OTHER ==
[2021-10-10 10:48] LABS: Basophils % (A) 0 %; Eosinophils # (A) 0.1 k/uL (0-0.7); Eosinophils % (A) 1 %; HCT 43.8 % (34.0-46.0); HGB 14.9 gm/dL (11.4-16.0); Lymphocytes # (A) 1.5 k/uL (1.0-4.8); Lymphocytes % (A) 25 %; MCH 31.2 pg (25.0-35.0); MCV 91.5 fL (80.0-100.0); Mean Platelet Volume 7.9; Monocytes # (A) 0.2 k/uL (0-1.0); Monocytes % (A) 4 %; Neutrophils # (A) 4.3 k/uL (1.3-7.7); Neutrophils % (A) 69 %; Platelet Count 165 k/uL (150-450); RBC 4.79 m/uL (3.80-5.40); RDW 11.9 % (11.5-15.5); WBC 6.2 k/uL (3.8-10.6)
== END | disposition home or self-care (01) ==
LOC: LABPAT 09:47
PROVIDERS: ATTEND Obstetrics & Gynecology
DX: Z01.812 Encounter for preprocedural laboratory examination (principal)
CPT/HCPCS: 85025

== ENCOUNTER 2021-10-15 05:52 | Day surgery (SDC) | payer OTHER ==
--- NOTE | 2021-10-04 13:33 | P.HPOB ---
History of Present Illness H&P Date: 10/04/21 Chief Complaint: Menorrhagia and fibroid uterus Patient is a 35-year-old female with heavy vaginal bleeding. She is a patient normally Dr. Nieto and he did predominant workup. She initially was interested in NovaSure ablation but had an ultrasound showing a fibroid and o vary 6 month time frame the fibroid did show some enlargement and therefore there proceeding with definitive therapy. The bleeding issue has been going on for a number of months and has not improved. They declined to do control pills but and her uterus and fibroid seemed out of proportion placed size for successful NovaSure. She and I had a very lengthy discussion on how the surgery is done and what the risks/benefits were as well as alternatives. She is scheduled for a robotic-assisted laps up hysterectomy with bilateral salpingectomy. There is possibility of a total abdominal hysterectomy and bilateral salpingo-oophorectomy. At the conclusion the procedure will proceed with a cystoscopy to verify bladder patency and ureter function. We did discuss the possibility of a supracervical hysterectomy, but I informed her that due to the enlargement of her fibroids that would not be a good idea as her still a small possibility there could be something cancerous or precancerous with in her uterus and should that be the case doing it supracervically would increase her risk for see of the abdomen if there was cancer present. All other questions were answered for her prior to proceeding to the operating room. Fibroid size is noted to increase from approximately 4 to approximately 6-7 cm in a 6 month duration. Symptomatically the predominant symptom was bleeding, but now she is noticing increasing pressure and discomfort secondary to the fibroid. Past Medical History Past Medical History: Thyroid Disorder Additional Past Medical History / Comment(s): Hypothyroidism. Patient's had 3 previous vaginal deliveries the first had a positive strep. History of mild thrombocytopenia with . History of Any Multi-Drug Resistant Organisms: None Reported Past Surgical History: No Surgical Hx Reported Past Anesthesia/Blood Transfusion Reactions: No Reported Reaction Past Psychological History: No Psychological Hx Reported Past Alcohol Use History: None Reported Past Drug Use History: None Reported - Past Family History Father Family Medical History: Diabetes Mellitus Medications and Allergies Home Medications Medication Instructions Recorded Confirmed Type Levothyroxine Sodium [Synthroid] 100 mcg PO DAILY 12/25/16 08/05/18 History 78/Iron/Folate 1/Dha 1 tab PO DAILY 12/25/16 08/05/18 History [Prenate Dha Softgel] Ibuprofen [Motrin] 600 mg PO Q6HR PRN #40 tab 08/06/18 Rx Famotidine [Pepcid] 20 mg PO DAILY #30 tablet 12/05/18 Rx Allergies Allergy/AdvReac Type Severity Reaction Status Date / Time Penicillins Allergy Rash/Hives Verified 12/05/18 21:20 Sulfa (Sulfonamide Allergy Rash/Hives Verified 12/05/18 21:20 Antibiotics) Exam Osteopathic Statement: *. No significant issues noted on an osteopathic structural exam other than those noted in the History and Physical/Consult. - OBG Physical Exam Breast: both: normal (no masses) Abdomen: bowel sounds normal, no diffuse tenderness, no bruit present, no guarding noted, no hepatomegaly, no splenomegaly, no mass Vulva: both: normal Vagina: normal moisture, no discharge Cervix: no lesion, no discharge Uterus: normal size, normal contour Adnexa: both: normal Anus/Rectum: normal perianal skin, no rectal mass, no hemorrhoids, heme negative
[2021-10-10 12:51] VITALS: BMI 30.2
[2021-10-15] MEDS ORDERED: ONDANSETRON 4 MG/2 ML VIAL IVP ONE (06:04)
[2021-10-15] MEDS ORDERED: DEXAMETHASONE SOD PHOSPHATE 4 MG/ML 1 ML VIAL IV ONE (06:04)
[2021-10-15] MEDS ORDERED: LACTATED RINGERS 1,000 ML IV ONE ×2 (06:38→09:29)
[2021-10-15] MEDS ORDERED: SCOPOLAMINE 1.5MG/72HR PATCH TRANSDERM ONE (06:42)
[2021-10-15] MEDS ORDERED: MIDAZOLAM 2 MG/2 ML VIAL IVP ONE (06:59)
[2021-10-15] MEDS ORDERED: GLYCOPYRROLATE 0.2 MG/ML 2 ML VIAL ONE (07:32)
[2021-10-15] MEDS ORDERED: NEOSTIGMINE 1 MG/ML 10 ML VIAL ONE (07:32)
[2021-10-15] MEDS ORDERED: KETOROLAC 15 MG/ML 1 ML VIAL ONE (07:32)
[2021-10-15] MEDS ORDERED: LIDOCAINE 1% INJ 10MG/ML (20 ML MDV) ONE (07:32)
[2021-10-15] MEDS ORDERED: ROCURONIUM 10 MG/ML (5 ML VIAL) IV ONE (07:32)
[2021-10-15] MEDS ORDERED: fentaNYL (PF) 50 MCG/ML 2 ML AMP ONE (07:32)
[2021-10-15] MEDS ORDERED: SUCCINYLCHOLINE CHLORIDE 100 MG/5 ML SYR IV ONE (07:32)
[2021-10-15] MEDS ORDERED: HYDROmorphone (PF) 1 MG/ML ONE (07:32)
[2021-10-15] MEDS ORDERED: MIDAZOLAM 2 MG/2 ML VIAL ONE (07:32)
[2021-10-15] MEDS ORDERED: PROPOFOL 10 MG/ML 20 ML VIAL IV ONE (07:32)
[2021-10-15] MEDS ORDERED: BUPIVACAINE (PF) 0.25% 30 ML VIAL SQ ONE ×2 (08:16)
[2021-10-15] MEDS ORDERED: ONDANSETRON 4 MG/2 ML VIAL IVP PRN (09:41)
[2021-10-15] MEDS ORDERED: KETOROLAC 15 MG/ML 1 ML VIAL IVP PRN (09:41)
[2021-10-15] MEDS ORDERED: SIMETHICONE 80 MG CHEWABLE PO PRN (09:41)
[2021-10-15] MEDS ORDERED: HYDROcodone/APAP 5-325MG 1 EACH TAB PO PRN ×2 (09:43)
--- NOTE | 2021-10-15 09:52 | P.OP ---
Date of Procedure: 10/15/21 Preoperative Diagnosis: Fibroid uterus Postoperative Diagnosis: Same Procedure(s) Performed: Robotic-assisted left scopic hysterectomy and bilateral salpingectomy Anesthesia: BAIRON Surgeon: Srikanth Esquivel Smoking Pipe Maker #1: Ariadne Doe Estimated Blood Loss (ml): 200 IV fluids (ml): 900 Urine output (ml): 200 Pathology: other (Uterus, cervix, fallopian tubes) Condition: stable Disposition: floor Operative Findings: Large fibroid uterus Description of Procedure: She was taken to the operating suite where general anesthetic was found be adequate. She was prepped and draped in normal sterile fashion and placed in dorsal lithotomy position. Initially a weighted speculum inserted in the vagina and anterior lip surface identified grasped with single-tooth tenaculum. Cervix was then dilated and sounded to 9 cm. Cup sizes measured 3.57 cm Janey manipulator was then inserted without difficulty with sutures placed at 3 and 9 for assistance. All other incidents were then removed and a Mike catheter was placed. Patient was then placed in this flap position close were changed and attention was turned to abdominal portion procedure where 2 mL of quarter Marcaine was injected approximately 1 cm above the umbilicus. Maximal centimeters uterus was difficult to obtain due to retroversion of fibroid uterus. Camera port was placed 2 lateral portions then placed 10-12 cm from the umbilicus on the right and left side and a fourth port was placed through a 170 incision between the left lateral and the medial port. Camera port was then exchanged for a robotic port and the laparoscopic was removed from the field. Robot was then brought in and docked. Once fully docked a scissor was placed in the one arm and a [place] grasper in the 2 arm. At this point I broke scrub and went to the console. Observations pelvis were noted. Uterus was grossly enlarged and rotated to the patient's right-hand side to heavy fibroid uterus and posterior aspect of the uterus. Initially the left fallopian tube was identified cauterized and transected free. This was then removed from the operative field. In summary fashion lifting the uterus and rotating the fallopian tube into position. The right fallopian tube was also excised. At this point the left utero-ovarian bleeding was identified cauterized and transected to the round ligament which was also cauterized and transected. Due to the size of the uterus very slow multistep cauterization was done anywhere near any vessels to maintain good hemostasis. The anterior posterior leafs of the broad ligament left side were developed and then cauterization of the left sided vascularity that was visible was performed. Bladder flap was then identified and undermined and incised across face uterus dissecting the bladder completely out of the operative field. Once this was completed in a similar fashion the right side of the uterus was developed. There was a fibroid essentially in the broad ligament and we very carefully cauterized around it and transected that it would remain attached to the uterus on removal I did come very close to encroaching on the optic sidewall. Slow meticulous dissection was then performed and the right side of the uterine vascular was then cauterized. Changing camera to 30 down scope bladder was verified out of the operative field and an anterior colpotomy was made following blowing up the balloon on the Janey. Visible blue couple is noted and dissected laterally to the left verifying cauterization of the vascular pedicles along the lateral border of the uterus. We did dissect as far lateral as we could and the moving in a counterclockwise fashion following the couple around the areolar reach approximately one third of the way around the uterus was then tipped to the left side and the moving in a clockwise fashion we're able follow the couple almost all the way around the posterior aspect which was cauterized and transected free by anteversion of the uterus. Once uterus was fully from the cervix cycles were verify that there is no active bleeding and therefore at this point I re-scrubbed in and went to the vagina and assisted in removal of the uterus f rom the vagina by pulling it down towards the vagina and in a stepwise fashion grabbing with a double-tooth and a single-tooth tenaculum and the posterior uterus and slowly bring it down into the vagina. Once it was in the vagina instruments in the abdomen were removed as there was a high likelihood of complete expulsion air which did occur when the uterus came free of the vaginal tissues and then a sterile glove with packing was placed in the vagina to reestablish pneumoperitoneum. At this point I broke scrub again and went to the console hemostasis was noted across the pedicles and therefore using 20 Vioxx suture the vagina vaginal cuff was reapproximated in a running fashion. There was a small gap that I felt was present near the middle of the vaginal cuff and therefore a an 0 Vicryl suture was used in a figure 8 fashion to close this area off fully. Once this was completed pelvis irrigated no active bleeding is noted therefore incidents removed gas was allowed to expel from the abdomen 5 deep breaths were provided during this process. It should be noted that I did use a cardia grasper and make suture cut for the placement of the vaginal cuff suture. Following this all incidents removed vagina is well fully cath was removed and I did do a cystoscopy with verification of flow from both ureteral jets. Full cath was then replaced and Dr. Doe close incisions with 4-0 Vicryl subcuticularly the remaining 8 mL of quarter percent Marcaine then injected around these incisions. Sponge, lap, needle counts were all correct 2. Patient was then taken to the recovery room in stable and satisfactory condition.
[2021-10-15] MEDS: HYDROmorphone 0.5 MG/0.5 ML SYRINGE IVP PRN ×2 (10:08→10:23)
[2021-10-15] MEDS ORDERED: diphenhydrAMINE 50 MG/ML 1 ML VIAL ONE (10:37)
[2021-10-15] MEDS ORDERED: diphenhydrAMINE 50 MG/ML 1 ML VIAL IVP ONE (10:38)
[2021-10-15] MEDS: LACTATED RINGERS 1,000 ML IV SCH (11:08)
[2021-10-15 11:38] VITALS: RESP 16
[2021-10-15] MEDS: SENNOSIDES-DOCUSATE SODIUM 1 EACH TAB PO SCH (23:23)
[2021-10-15] MEDS: IBUPROFEN 600 MG TAB PO PRN (23:23)
[2021-10-16] MEDS: LACTATED RINGERS 1,000 ML IV SCH (05:40)
[2021-10-16] MEDS: IBUPROFEN 600 MG TAB PO PRN (06:53)
[2021-10-16 07:42] LABS: Basophils % (A) 0 %; Eosinophils # (A) 0.1 k/uL (0-0.7); Eosinophils % (A) 1 %; HCT 36.6 % (34.0-46.0); HGB 12.5 gm/dL (11.4-16.0); Lymphocytes # (A) 1.5 k/uL (1.0-4.8); Lymphocytes % (A) 17 %; MCH 31.6 pg (25.0-35.0); MCV 92.9 fL (80.0-100.0); Mean Platelet Volume 7.7; Monocytes # (A) 0.4 k/uL (0-1.0); Monocytes % (A) 4 %; Neutrophils # (A) 6.7 k/uL (1.3-7.7); Neutrophils % (A) 76 %; Platelet Count 138 k/uL (150-450); RBC 3.94 m/uL (3.80-5.40); WBC 8.8 k/uL (3.8-10.6)
--- NOTE | 2021-10-16 08:01 | P.DS ---
Providers Expected date of discharge: 10/16/21 Attending physician: Srikanth Esquivel Primary care physician: [facility] Course: Patient is doing very well post op day 1. She is ambulating, she is voiding and she is tolerating her diet. She relates that she did have some blood on her first void after Mike removal, however, it was noted by both she and nursing staff that there was some difficulty in removing the Mike catheter is unclear to me what the difficulty might have been. Urine is now clear. We did do a cystoscopy following surgery and there is no damage to the bladder or ureters at that time so I think almost certainly this is traumatic removal of her Mike. We will plan to discharge her home today and follow up with her in 1 week. She does not require any narcotics for pain control and is requesting only a dose of Motrin for a prescription for home. Otherwise her vital signs are stable and she is afebrile. Heart is regular, lungs are clear and her abdomen is soft. Her incisions are otherwise intact and she does have bowel sounds. Assessment postop day 1. Plan discharged home follow up with me in 1 week. Discharge instructions were again thoroughly reviewed with her she is aware to have no heavy lifting, limit stairs and driving as well as pelvic rest. She will also have no tub baths for a minimum of 2 weeks and she will remain without any intercourse for at least 6-8 weeks until we're certain the vaginal cuff is healed. All the questions are answered and she is stable for discharge this time. Patient Condition at Discharge: Good Plan - Discharge Summary Discharge Rx Participant: Yes New Discharge Prescriptions: No Action Levothyroxine Sodium [Synthroid] 100 mcg PO DAILY Cholecalciferol [Vitamin D3 (25 Mcg = 1000 Iu)] 25 mcg PO DAILY Multivitamins, Thera [Multivitamin (formulary)] 1 tab PO DAILY Ascorbic Acid [Vitamin C] 500 mg PO DAILY Magnesium 200 mg PO DAILY Discharge Medication List Levothyroxine Sodium [Synthroid] 100 mcg PO DAILY 12/25/16 [History] Ascorbic Acid [Vitamin C] 500 mg PO DAILY 10/10/21 [History] Cholecalciferol [Vitamin D3 (25 Mcg = 1000 Iu)] 25 mcg PO DAILY 10/10/21 [History] Magnesium 200 mg PO DAILY 10/10/21 [History] Multivitamins, Thera [Multivitamin (formulary)] 1 tab PO DAILY 10/10/21 [History] Patient Instructions/Handouts: *Surgery [facility] - Scopalamine Patch Instructions
[2021-10-16 08:38] VITALS: BP 123/75; PULSE 85; TEMP 98.4
[2021-10-16] MEDS: SENNOSIDES-DOCUSATE SODIUM 1 EACH TAB PO SCH (08:47)
== END 2021-10-16 10:15 | disposition home or self-care (01) ==
LOC: OR 05:52 → 4FBP 09:51 → OR 10-16 10:15
PROVIDERS: ATTEND Obstetrics & Gynecology
DX: N92.0 Excessive and frequent menstruation with regular cycle (principal); D25.9 Leiomyoma of uterus, unspecified; E03.9 Hypothyroidism, unspecified; Z20.822 Contact with and (suspected) exposure to COVID-19; Z79.890 Hormone replacement therapy; Z88.0 Allergy status to penicillin; Z88.2 Allergy status to sulfonamides
CPT/HCPCS: 58571; 81025; 86900; 86901; 85025; 86850; 88307; 87635; J2250; J1200; J1100; J2710; J0690; J2405; J2001; J3010; J1170 ×2; J1885; J0330; J2704

== ENCOUNTER → 2021-11-06 | Outpatient (CLI) | payer OTHER ==
--- NOTE | 2021-11-07 15:05 | MM ---
Reason for exam: screening (asymptomatic). Baseline mammogram. History: Took hormonal contraceptives for 9 years beginning at age 17. Physical Findings: Nurse did not find any significant physical abnormalities on exam. MG 3D Screening Mammo W/Cad Bilateral CC and MLO view(s) were taken. XCCL view(s) were taken of the left breast. The breast tissue is heterogeneously dense. This may lower the sensitivity of mammography. Finding: There is a 9 mm microlobulated oval mass located 5 cm from the nipple in the lower outer quadrant of the right breast. ASSESSMENT: Incomplete: need additional imaging evaluation, BI-RAD 0 RECOMMENDATION: Ultrasound of the right breast. [facility] will attempt to contact patient to return for ultrasound.
== END | disposition home or self-care (01) ==
LOC: RADMAMWWP 09:34
PROVIDERS: ATTEND Obstetrics & Gynecology
DX: Z12.31 Encounter for screening mammogram for malignant neoplasm of breast (principal)
CPT/HCPCS: 77063; 77067

== ENCOUNTER → 2021-11-09 | Outpatient (CLI) | payer OTHER ==
--- NOTE | 2021-11-12 08:39 | USB ---
Reason for exam: additional evaluation requested from abnormal screening. History: Took hormonal contraceptives for 9 years beginning at age 17. Physical Findings: Breast exam preformed at baseline screening. US Breast Workup Limited RT Right limited breast ultrasound including focal area of concern, retroareolar and axilla demonstrates no significant cystic or solid lesion greater than 0.50cm. Skin lesion correlates to mammographic abnormality. These results were verbally communicated with the patient and result sheet given to the patient on 11/09/21. ASSESSMENT: Negative, BI-RAD 1 RECOMMENDATION: Routine screening mammogram of both breasts at age 39.
== END | disposition home or self-care (01) ==
LOC: RADUSWWP 13:37
PROVIDERS: ATTEND Obstetrics & Gynecology
DX: R92.8 Other abnormal and inconclusive findings on diagnostic imaging of breast (principal)

== ENCOUNTER → 2022-06-18 | Outpatient (CLI) | payer OTHER ==
--- NOTE | 2022-06-18 08:43 | US ---
EXAMINATION TYPE: US carotid duplex BILAT DATE OF EXAM: 06/18/2022 COMPARISON: NONE CLINICAL HISTORY: M54.2 CERVICALGIA. Neck pain. EXAM MEASUREMENTS: RIGHT: Peak Systolic Velocity (PSV) cm/sec ----- Right CCA: 95.2 ----- Right ICA: 92.7 ----- Right ECA: 81.4 ICA/CCA ratio: 1.0 RIGHT: End Diastole cm/sec ----- Right CCA: 32.5 ----- Right ICA: 29.1 ----- Right ECA: 19.5 LEFT: Peak Systolic Velocity (PSV) cm/sec ----- Left CCA: 98.6 ----- Left ICA: 97.4 ----- Left ECA: 113.4 ICA/CCA ratio: 1.0 LEFT: End Diastole cm/sec ----- Left CCA: 33.9 ----- Left ICA: 33.6 ----- Left ECA: 25.4 VERTEBRALS (direction of flow): Right Vertebral: Antegrade Left Vertebral: Antegrade Rhythm: Normal No elevated velocities at this time. Hypoechoic area with hyperechoic center seen right neck:1.9 x 1.2 x 0.7 cm. Hypoechoic area with hyperechoic center seen left neck: 1.9 x 1.1 x 0.6 cm. IMPRESSION: 1. No significant hemodynamic stenosis. 2. Bilateral neck nonspecific lymphadenopathy. Criteria for Assigning % of Stenosis / Diameter reduction (Estimation based on the indirect measurements of the internal carotid artery velocities (ICA PSV). 1. Normal (no stenosis)=ICA PSV < 125 cm/s: ratio < 2.0: ICA EDV<40 cm/s. 2. Less than 50% stenosis=ICA PSV < 125 cm/s: ratio < 2.0: ICA EDV<40 cm/s. 3. 50 to 69% stenosis=ICA PSV of 125 to 230 cm/s: ration 2.0 ? 4.0: ICA EDV 40-100 cm/s. 4. Greater than 70% stenosis to near occlusion= ICA PSV > 230 cm/s: ratio > 4.0: ICA EDV > 100 cm/s. 5. Near occlusion= ICA PSV velocities may be low or undetectable: variable ratio and ICA EDV. 6. Total occlusion=unable to detect flow.
--- NOTE | 2022-06-18 08:48 | US ---
EXAMINATION TYPE: US thyroid st tissue head/neck DATE OF EXAM: 06/18/2022 COMPARISON: NONE CLINICAL HISTORY: M54.2 CERVICALGIA. Hx hypothyroidism per patient. Pt on synthroid since 2010. Neck pain. GLAND SIZE: Right Lobe: 4.7 x 1.2 x 1.1 cm Overall Parenchyma: homogenous Left Lobe: 3.9 x 1.3 x 0.8 cm Overall Parenchyma: homogeneous Isthmus Thickness: 0.27 cm NODULES RIGHT: # of nodules measured on right: 1 1. 0.8 X 0.6 x 0.5 cm, mid mid, solid or almost completely solid, hypoechoic nodule, which is wider than tall, with ill-defined margins, without echogenic foci. Prior size: no prior LEFT: # of nodules measured on left: 0 ISTHMUS: # of nodules measured in the isthmus: 0 Bilateral neck scanned, no evidence of lymphadenopathy. IMPRESSION: 8mm nodule within the right lobe of the thyroid appears solid. 2017 ACR TI-RADS LEVEL: TR-RADS 4 - Moderately Suspicious: Follow if > 1 cm, FNA if > 1.5 cm *Highest TI-RADS level nodule reported
== END | disposition home or self-care (01) ==
LOC: RADUSWWP 07:33
PROVIDERS: ATTEND Family Medicine
DX: M54.2 Cervicalgia (principal); E04.2 Nontoxic multinodular goiter
CPT/HCPCS: 76536; 93880

== ENCOUNTER → 2022-06-21 | Outpatient (CLI) | payer OTHER ==
--- NOTE | 2022-06-21 16:15 | MR ---
MR brain without contrast HISTORY: H 57.04, headache and dizziness Multiplanar multisequence imaging obtained through the brain No comparisons There is no restricted diffusion. Probable mucus retention cyst present in the left maxillary sinus, inflammatory change present within the ethmoid air cells. Cerebellopontine angles, corpus callosum, p ituitary, cervical medullary junction are within normal limits, there is a partially empty sella. Bra in signal is within normal limits. There is no hemorrhage or hydrocephalus. There are expected vascul ar flow voids. The orbits show symmetric appearance there is some cerebrospinal fluid signal along th e optic nerves. IMPRESSION: Partially empty sella, constellation of findings can be seen in pseudotumor cerebri, pankaj elate clinically. Sinus disease.
--- NOTE | 2022-06-21 16:44 | MR ---
EXAMINATION TYPE: MR angio head wo con DATE OF EXAM: 06/21/2022 COMPARISON: HISTORY: MYDRIASIS, frequent ann, left pupil dilation, dizziness TECHNIQUE: Time of flight images focusing on the [place] were performed without contrast. Di mensional reconstructions performed on an alternate workstation and reviewed. FINDINGS: Anterior and posterior circulation are intact. There is no evident aneurysm, dissection, st enosis, or embolus. IMPRESSION: Normal [place] MRA
== END | disposition home or self-care (01) ==
LOC: RADMRIMAIN 05:54
PROVIDERS: ATTEND Family Medicine
DX: H57.04 Mydriasis (principal); G93.89 Other specified disorders of brain
CPT/HCPCS: 70544; 70551

== ENCOUNTER → 2022-11-22 | Outpatient (CLI) | payer OTHER ==
[2022-11-22 18:23] LABS: Estradiol 42.6 pg/mL
[2022-11-22 18:30] LABS: African American GFR (CKD) 82.4 (60.0-200.0); Albumin 4.5 g/dL (3.8-4.9); Albumin/Globulin Ratio 2.11 (1.60-3.17); Anion Gap 11.5 mmol/L (10.00-18.00); BUN/Creat Ratio 14.55 Ratio (12.00-20.00); Blood Urea Nitrogen 14.7 mg/dL (9.0-27.0); Calcium 9.3 mg/dL (8.7-10.3); Carbon Dioxide 24.1 mmol/L (20.0-27.5); Globulin 2.1 g/dL (1.6-3.3); Non-African American GFR(CKD) 71.1 (60.0-200.0); T4, Free (Free Thyroxine) 1.28 ng/dL (0.800-1.800); Total Bilirubin 0.4 mg/dL (0.30-1.20); Total Protein 6.6 g/dL (6.2-8.2)
[2022-11-22 18:31] LABS: Follicle Stimulating Hormone 6.4 mIU/mL; Luteinizing Hormone 5.7 mIU/mL
== END | disposition home or self-care (01) ==
LOC: LABWHC1 08:04
PROVIDERS: ATTEND Internal Medicine Endocrinology, Diabetes & Metabolism
DX: E03.9 Hypothyroidism, unspecified (principal); E23.6 Other disorders of pituitary gland
CPT/HCPCS: 36415; 80053; 82024; 82533; 82670; 83001; 83002; 83036; 84146; 84305; 84439; 84443

== ENCOUNTER → 2023-08-29 | Outpatient (CLI) | payer OTHER ==
--- NOTE | 2023-09-01 10:54 | US ---
EXAMINATION TYPE: US thyroid st tissue head/neck DATE OF EXAM: 08/29/2023 COMPARISON: 06/18/2022 CLINICAL INDICATION: Female, 37 years old with history of E03.9 HYPOTHYROIDISM, UNSPECIFIED; Follow u p thyroid nodule. Both aneurysmHypothyroidism GLAND SIZE: Right Lobe: 4.4 x 1.1 x 1.2 cm Overall Parenchyma: homogenous Left Lobe: 3.7 x 0.9 x 1.1 cm Overall Parenchyma: homogeneous Isthmus Thickness: 0.4 cm NODULES RIGHT: # of nodules measured on right: 1 1. 0.9 X 0.5 x 0.7 cm, mid, Prior size: 0.8 x 0.5 x 0.6 cm TIRADS Score: 4 TIRADS Category 4: Moderately Suspicious Composition: Solid or almost completely solid (2 points). Echogenicity: Hypoechoic (2 points). Shape: Wider than tall (0 points). Margin: Smooth (0 points). Echogenic foci: None or large comet-tail artifacts (0 points) Recommendation: If >1.5cm: FNA; If >1cm: Follow up at 1,2, 3,5 years LEFT: # of nodules measured on left: 0 ISTHMUS: # of nodules measured in the isthmus: 0 Bilateral neck scanned, no evidence of lymphadenopathy. IMPRESSION: Stable right thyroid gland nodule. Consider follow-up in one year for stability.
== END | disposition home or self-care (01) ==
LOC: RADUSWWP 07:37
PROVIDERS: ATTEND Family Medicine
DX: E04.1 Nontoxic single thyroid nodule (principal); E03.9 Hypothyroidism, unspecified
CPT/HCPCS: 76536

== ENCOUNTER → 2024-09-03 | Outpatient (CLI) | payer OTHER ==
[2024-09-03 15:38] LABS: T4, Free (Free Thyroxine) 1.61 ng/dL (0.80-1.80)
== END | disposition home or self-care (01) ==
LOC: LABWHC1 10:16
PROVIDERS: ATTEND Family Medicine
DX: E03.9 Hypothyroidism, unspecified (principal)
CPT/HCPCS: 36415; 84439; 84443; 84481

== ENCOUNTER → 2024-09-03 | Outpatient (CLI) | payer OTHER ==
--- NOTE | 2024-09-03 10:42 | US ---
EXAMINATION TYPE: US thyroid st tissue head/neck DATE OF EXAM: 09/03/2024 COMPARISON: US CLINICAL INDICATION: Female, 38 years old with history of E04.1 THYROID NODULE; F/U nodule TECHNIQUE: Grayscale and color Doppler imaging of the thyroid gland. FINDINGS: GLAND SIZE: Right Lobe: 3.9 x 1.1 x 1.1 cm Overall Parenchyma: homogeneous Left Lobe: 3.0 x 0.8 x 0.9 cm Overall Parenchyma: homogeneous Isthmus Thickness: 0.2 cm NODULES RIGHT: # of nodules measured on right: 1 1. 0.8 X 0.5 x 0.5 cm, mid, solid or almost completely solid, isoechoic nodule, which is wider than tall, with smooth margins, without echogenic foci. Prior size: 0.9 x 0.5 x 0.7 cm LEFT: # of nodules measured on left: 0 ISTHMUS: # of nodules measured in the isthmus: 0 Bilateral neck scanned, no evidence of lymphadenopathy. Stable sub-centimeter nodule right lobe. IMPRESSION: Stable subcentimeter nodule is unchanged. 2017 ACR TI-RADS LEVEL: *Highest TI-RADS level nodule reported [email or web address], , 09/03/2024 10:40 AM
== END | disposition home or self-care (01) ==
LOC: RADUSWWP 10:11
PROVIDERS: ATTEND Family Medicine
DX: E04.1 Nontoxic single thyroid nodule (principal)
CPT/HCPCS: 76536

== ENCOUNTER → 2025-04-28 | Outpatient (CLI) | payer OTHER ==
--- NOTE | 2025-05-06 14:09 | EST ---
EXERCISE STRESS STUDY PERFORMED: Holter monitor. CLINICAL INFORMATION: The patient's baseline rhythm is a sinus mechanism. The average rate 71 beats per minute, minimum 43, maximum 141 beats per minute. Ventricular ectopic activity burden is less than 1% with single PVCs. No atrial fibrillation was noted. Symptoms of heart racing correlated with sinus mechanism. CONCLUSION: 1. Sinus mechanism, baseline rhythm. 2. Rare ventricular ectopic activity. 3. No atrial fibrillation. 4. Symptoms did not correlate with any dysrhythmia. MMODL / IJN: [id number] /
== END | disposition home or self-care (01) ==
LOC: RADECHMAIN 13:49
PROVIDERS: ATTEND Family Medicine
DX: I49.3 Ventricular premature depolarization (principal); R00.0 Tachycardia, unspecified
CPT/HCPCS: 93270